=== PATIENT | female | born 1950 | race Caucasian/White ===

== ENCOUNTER 2017-12-15 11:41 | Emergency (ER) | payer MEDICARE ==
--- NOTE | 2017-12-15 12:30 | UC ---
Throat Pain/Nasal Shane HPI - HPI Summary HPI Summary: Pt presents with dry cough, sinus pain/pressure/congestion, and sore throat for the last 10 days. She has been taking an OTC robitussin with mild relief of her cough. She is in town visiting her mother, who is sick with similar symptoms. Denies fever, chills, SOB, chest pain, abdominal pain, n/v/d/c. - History of Current Complaint Chief Complaint: UCGeneralIllness Stated Complaint: SORE THROAT,COUGH Time Seen by Provider: 12/15/17 12:30 Hx Obtained From: Patient Onset/Duration: Gradual Onset Severity: Mild Pain Intensity: 2 Pain Scale Used: 0-10 Numeric Cough: Nonproductive - Allergies/Home Medications Allergies/Adverse Reactions: Allergies Allergy/AdvReac Type Severity Reaction Status Date / Time Penicillins [PCN] Allergy Difficulty Verified 12/15/17 12:21 Breathing Home Medications: Home Medications Atorvastatin* [Lipitor 20 MG*] 20 mg PO 12/15/17 [History] Losartan TAB* [Cozaar TAB*] 25 mg PO 12/15/17 [History] PMH/Surg Hx/FS Hx/Imm Hx Endocrine History: Dyslipidemia Cardiovascular History: Hypertension - Surgical History Surgical History: Yes Surgery Procedure, Year, and Place: toe, nasal - Family History Known Family History: Positive: Hypertension - Social History Occupation: Retired Lives: With Family Alcohol Use: Rare Substance Use Type: None Smoking Status (MU): Never Smoked Tobacco Review of Systems Constitutional: Negative Skin: Negative Eyes: Negative ENT: Sore Throat, Nasal Discharge, Sinus Congestion, Sinus Pain/Tenderness Respiratory: Cough Cardiovascular: Negative Gastrointestinal: Negative Neurological: Negative Psychological: Negative All Other Systems Reviewed And Are Negative: Yes Physical Exam Triage Information Reviewed: Yes Appearance: No Pain Distress, Well-Nourished, Ill-Appearing Vital Signs: Initial Vital Signs Temp 97.2 F 12/15/17 12:23 Pulse 77 12/15/17 12:23 Resp 18 12/15/17 12:23 BP 122/78 12/15/17 12:23 Pulse Ox 96 12/15/17 12:23 Vital Signs Reviewed: Yes Eyes: Positive: Conjunctiva Clear. Negative: Conjunctiva Inflamed, Discharge ENT: Positive: Hearing grossly normal, Pharynx normal, Nasal congestion, Nasal drainage, TMs normal, Sinus tenderness, Uvula midline. Negative: Pharyngeal erythema, TM bulging, TM dull, TM red, Tonsillar swelling, Tonsillar exudate, Hoarse voice Neck: Positive: Supple, Nontender, No Lymphadenopathy Respiratory: Positive: Chest non-tender, Lungs clear, Normal breath sounds, No respiratory distress, No accessory muscle use Cardiovascular: Positive: RRR, No Murmur, Pulses Normal Neurological: Positive: Alert Psychological: Positive: Age Appropriate Behavior Skin: Negative: rashes Throat Pain/Nasal Course/Dx - Course Course Of Treatment: Sinusitis - Azithromycin - Differential Dx/Diagnosis Provider Diagnoses: Sinusitis Discharge - Discharge Plan Condition: Stable Disposition: HOME Prescriptions: Azithromycin TAB* [Zithromax TAB (Z-SHIRLEY) 250 mg #6 tabs] 2 tab PO .TODAY, THEN 1 DAILY #1 shirley Patient Education Materials: Sinusitis (ED) Referrals: No Primary Care Phys,NOPCP [Primary Care Provider] - Additional Instructions: If you develop a fever, shortness of breath, chest pain, new or worsening symptoms - please call your PCP or go to the ED.
== END 2017-12-15 13:00 | disposition home or self-care (01) ==
LOC: UCEAST 11:41
DX: J32.9 Chronic sinusitis, unspecified (principal); I10 Essential (primary) hypertension; E78.5 Hyperlipidemia, unspecified; Z88.0 Allergy status to penicillin
CPT/HCPCS: 99202; G0463